=== PATIENT | female | born 1985 | race Caucasian/White ===

== ENCOUNTER 2024-01-10 12:23 | Emergency (ER) | payer SELFPAY ==
[2024-01-10 12:32] VITALS: BP 104/70; PULSE 112; RESP 20; TEMP 37.2; O2SAT 99
--- NOTE | 2024-01-10 12:45 | ED.URI ---
HPI - URI/Sore Throat General Chief Complaint: Upper Respiratory Infection Stated Complaint: cough/chest tight/aches History of Present Illness HPI Narrative: patient presents with a 2 week history of cough. Productive at times of thick green mucus. No shortness of breath no chest pain patient is a daily smoker denies any fever or body aches. Patient states she has been taking multiple [id number] medications for her cough. Related Data Allergies Allergy/AdvReac Type Severity Reaction Status Date / Time No Known Allergies Allergy Unverified 06/04/15 15:45 Review of Systems Review of Systems: CONSTITUTIONAL: Denies chills, or sweats. Reports fever and generalized body aches EYES: Denies visual changes, redness, or discharge. ENT: Denies otalgia. Reports nasal congestion runny nose and sore throat CARDIOVASCULAR: Denies chest pain, palpitations, or edema. RESPIRATORY: Denies dyspnea. Reports occasional cough GASTROINTESTINAL: Denies abdominal pain, nausea, vomiting, or diarrhea. GENITOURINARY: Denies dysuria or hematuria. SKIN: Denies rash or itching. MUSCULOSKELETAL: Denies back pain, joint pain, or myalgia. Reports generalized body aches NEUROLOGIC: Denies headache, numbness, or weakness. PSYCHIATRIC: Denies anxiety or depression. PMFSH Comments At time of signature, agree with nursing past medical, surgical, social and family history. There is no relevant family history pertinent to the presenting complaint Exam Narrative: The patient is a well-developed, well-nourished in no acute distress. SKIN: Skin is warm and dry without erythema, swelling or exudate. There is good turgor. No tenting. HEAD: Atraumatic. Normocephalic. No temporal or scalp tenderness. EYES: Moist and bright. Sclera and conjunctivae normal. No discharge. PERRLA. Extraocular motions intact. Gross visual acuity intact. EARS: Pinna is normal shape and contour. Clear external auditory canals. TM pearly haque with good cone of light, no erythema or suppuration. Bilateral cerumen noted no gross hearing deficit. NOSE: pink, moist mucosa with good air movement. Clear rhinorrhea without nasal flaring. Septum midline. Mouth: moist mucous membranes. THROAT; mild erythema noted to posterior oropharynx with moderate postnasal drainage. Without exudate or ulceration.. Uvula midline. Normal movement of soft palate. NECK: Supple and nontender with full range of motion without discomfort. No meningeal signs. LUNGS: Equal and bilateral breath sounds with wheezes, faint rhonchi right lower lung CHEST: The chest wall is without retractions or use of accessory muscles. HEART: Has a regular rate and rhythm without murmur, gallops, click or rub. ABDOMEN: Soft, nontender with positive active bowel sounds. No rebound tenderness. EXTREMITIES: Without cyanosis, clubbing or edema. Equal 2+ distal pulses and 2 second capillary refill noted. NEUROLOGIC: alert, active, . The patient moves all extremities with normal muscle strength. Normal muscle tone is noted. Normal coordination is noted. NO focal neurological findings noted. Course Course Level of Care: Express Care Visit Discharge Plan Discharge Clinical Impression: Acute lower respiratory infection Patient Disposition: Home, Self-Care Condition: Stable Instructions: Antibiotic Form, Pneumonia (ED) Additional Instructions: 2. Rest and drink lots of fluids. Maintain a good diet, with foods rich in vitamins and minerals, and lots of fruits and vegetables. 3. Drinking hot tea, warm tea with honey, sucking on cough drops or hard candy, throat lozenges may help with sore throat. 4. OTC cough and cold medications are okay to take for your symptoms, including Mucinex expectorant. 5. If you have high BP, Coricidin HBP is behind the counter , you may ask your pharmacist for this. Otherwise, avoid medications that have a D at the end or a decongestant in them. These medications may increase your BP. 6. Breathing in warm, moist air, such as in the shower or a humidifier at your bedside or in your home. 7. Avoid smoking or being around those who smoke. 8. Protect yourself and others, cover your mouth when you cough and sneeze, and always wash your hands to prevent the spread of germs, if you are unable to, use hand research center director. . . Prescriptions: New azithromycin [Zithromax Z-Uvaldo] 250 mg tablet See Rx Instructions .ROUTE .COMPLEX Qty: 6 0RF Rx Instructions: take 500 mg today (day 1), then 250 mg for 4 days (days 2-5) benzonatate 100 mg capsule 100 mg PO TID PRN (Reason: cough) 5 Days Qty: 10 0RF albuterol sulfate 90 mcg/actuation HFA aerosol inhaler 2 puff inhalation QID PRN (Reason: shortness of breath or wheezing) Qty: 1 0RF Follow-up/Referrals: PHYSICIAN,SWITCHGEAR REPAIRER [Primary Care Provider] - Stand Alone Forms: Work/School Release IP
== END 2024-01-10 12:54 | disposition home or self-care (01) ==
PROVIDERS: Emergency Provider Nurse Practitioner Family
DX: J22 Unspecified acute lower respiratory infection (principal)
CPT/HCPCS: 99203; G0463